=== PATIENT | female | born 1955 | race Caucasian/White ===

== ENCOUNTER 2017-09-18 07:10 | Day surgery (SDC) | payer BC ==
[~2017-09-18 07:10] MED LIST: CEFAZOLIN 1 GM INJ; DEXAMETHASONE 4 MG/ML 1 ML INJ; ONDANSETRON 4 MG INJ
[2017-09-18] MEDS ORDERED: LACTATED RINGER'S 1,000 ML IV (08:00)
[2017-09-18] MEDS ORDERED: POLYMYXIN/BACITRACIN 1L IRRIG (08:52)
[2017-09-18] MEDS ORDERED: MIDAZOLAM 1 MG/ML 2 ML INJ IV (09:00)
[2017-09-18] MEDS ORDERED: HYDROmorphONE 1 MG/5 ML IV SYRINGE IV ×3 (09:00)
[2017-09-18] MEDS ORDERED: ONDANSETRON 4 MG INJ IV (09:00)
[2017-09-18] MEDS ORDERED: EPHEDrine SULFATE 50 MG/5 ML SYG IV (09:00)
[2017-09-18] MEDS ORDERED: OXYCODONE/ACETAMINOPHEN (5/325) TAB PO ×2 (09:00)
[2017-09-18] MEDS ORDERED: DIPHENHYDRAMINE 50 MG INJ IV (09:00)
[2017-09-18] MEDS ORDERED: LABETALOL HCL 20MG INJ IV (09:00)
[2017-09-18] MEDS ORDERED: hydrALAzine 20 MG INJ IV (09:00)
[2017-09-18] MEDS ORDERED: ALBUTEROL 0.083% (NEB) 2.5 MG/3 ML AMP HHN (09:00)
[2017-09-18] MEDS ORDERED: FENTAnyl 50 MCG/ML VIAL IV ×3 (09:00)
[2017-09-18] MEDS ORDERED: PROPOFOL 100 ML (09:02)
[2017-09-18] MEDS ORDERED: LIDOCAINE 2% (SDV) 5 ML INJ (09:02)
[2017-09-18] MEDS: BUPIVACAINE 0.25% (MPF) 30 ML INJ (09:25)
[2017-09-18] MEDS: NEOMYC/POLYMYX/BACIT 30 GM OINT (09:45)
[2017-09-18] MEDS: MEPERIDINE 25 MG INJ IV (10:40)
[2017-09-18] MEDS: KETOROLAC 30 MG INJ IV (10:41)
[2017-09-18] MEDS ORDERED: CEFAZOLIN 1 GM/50 ML (PMX) 50 ML IVPB (11:00)
== END 2017-09-18 12:00 | disposition home or self-care (01) ==
LOC: SDS 07:10
DX: M25.775 Osteophyte, left foot (principal); D16.32 Benign neoplasm of short bones of left lower limb
CPT/HCPCS: 28308; 73620; 88307